=== PATIENT | female | born 1965 | race Caucasian/White ===

== ENCOUNTER 2019-01-26 17:16 | Emergency (ER) | payer OTHER, SELFPAY ==
[2019-01-26 17:17] VITALS: BP 148/89; PULSE 81; RESP 16; TEMP 36.3; O2SAT 99; BMI 22.8
--- NOTE | 2019-01-26 17:32 | RAD_ITS ---
STUDY: X-RAY - RIGHT ANKLE REASON FOR EXAM: Female, 53 years old. Pain and swelling TECHNIQUE: 3 view(s) of the ankle. COMPARISON: None. FINDINGS: There is a 2 mm linear osseous density adjacent to the lateral malleolus on the AP view. This may represent a tiny avulsion fracture. The remainder the visualized osseous structures are intact. There are no significant degenerative changes. There are no radiodense foreign bodies. There is soft tissue swelling noted at the lateral aspect. RAD/Ankle min 3 Views IMPRESSION: 2 mm linear osseous density adjacent to the lateral malleolus on the AP view. This may represent a tiny avulsion fracture. Soft tissue swelling laterally. Electronically Signed: Rm Sanchez, at 17:49 EDT Tel , Service support ,
--- NOTE | 2019-01-26 17:47 | ED.DCSUM_ITS ---
- ER Visit Summary Date of Service: 01/26/19 Chief Complaint: [Injury to right ankle] History of Present Illness: The patient is a 53 F presents to the emergency department after injuring her right ankle this morning while at work. Patient states that she stepped off of a curb and twisted the ankle. Patient initially did not think much of it but now having a hard time walking secondary to the pain. Patient noticed a lot of discoloration to the ankle. She denies any other injuries. Patient has no medical history otherwise.] Physical Examination: [HEENT-PERRLA, EOMI. Cranial nerves II through XII grossly intact. TMs clear. Mucous membranes moist. No adenopathy. Cardiovascular-regular rate and rhythm without murmur or ectopy Lungs-clear to auscultation, chest wall stable without crepitus or subcu emphysema Abdomen-normoactive bowel sounds, soft, nontender, no rebound or rigidity, no peritoneal signs. Extremities-intact ?4, normal range of motion, normal pulses. Right ankle- patient has diffuse soft tissue swelling about the lateral malleolus with ecchymosis and bruising noted. Patient has tenderness over the lateral malleolus. Patient has minimal discomfort over the base of the fifth metatarsal. She has no pain at the proximal fibular head. She is neurovascular intact distally.] Test Results: [X-rays of the right ankle obtained showed no fractures as read by myself.] Emergency Department Course and Treatment: [Will be given an air splint and crutches. She will be given a few Franklin for severe pain.] Treatment Plan: [Advised to ice and elevate extremity. Patient to follow-up with corporate care in 5 to 7 days for repeat exam. Patient will be given work restrictions.] Disposition: [Discharged home in stable condition.] Impression: [Right ankle sprain] This note was generated with [employer] dictation software. It may contain incorrect words, spelling, and punctuation that were not noted in review of the chart prior to signing ED Disposition - Plan for ED Patient: Referrals: Care Physician,No Primary [Primary Care Provider] -
--- NOTE | 2019-01-26 17:50 | ED.DEP ---
ED Disposition - Plan for ED Patient: Instructions: Sprain, Ankle, with X-Ray Prescriptions: Hydrocodone Bitart/Apap 5-325 [Hawkins 5MG-325MG] 1 tab PO Q4H PRN PRN 2 Days #10 tab PRN Reason: Pain Prescription Printed Referrals: Care Physician,No Primary [Primary Care Provider] - [facility]Care [GROUP OF PHYSICIANS] - 5-7 Days
== END 2019-01-26 18:37 | disposition home or self-care (01) ==
LOC: ED 17:45
PROVIDERS: Emergency Provider Emergency Medicine
DX: S93.401A Sprain of unspecified ligament of right ankle, initial encounter (principal); X50.1XXA Overexertion from prolonged static or awkward postures, initial encounter; W10.1XXA Fall (on)(from) sidewalk curb, initial encounter; Y93.9 Activity, unspecified; Y92.9 Unspecified place or not applicable; Y99.0 Civilian activity done for income or pay
CPT/HCPCS: 73610; 99284

== ENCOUNTER → 2019-02-20 07:13 | Outpatient (CLI) | payer OTHER, SELFPAY ==
[2019-02-07 06:27] VITALS: BMI 22.8
[2019-02-14 06:53] VITALS: BMI 30.4
--- NOTE | 2019-02-20 07:15 | MRI_ITS ---
STUDY: MRI RIGHT ANKLE WITHOUT CONTRAST REASON FOR EXAM: Right ankle pain, mostly lateral, injury 4 weeks ago. TECHNIQUE: Standardized fat and water weighted pulse sequences were obtained in all 3 orthogonal planes. COMPARISON: Radiographs 01/26/2019. FINDINGS: There is a hematoma in the subcutis adipose space anterior to the distal fibula (T1 sagittal images 4-6) measuring 2.5 cm in length. There is edema in the subcutis adipose space, greatest at the lateral aspect. There is a very small volume of fluid in the distal posterior tibialis tendon sheath and a small longitudinal split of the distal posterior tibialis tendon (T2 axial images 18, 19). There is a partially fused type II accessory navicular (T1 sagittal images 17, 18). Normal flexor digitorum longus tendon. Normal flexor hallucis longus tendon. There is a very small volume of fluid in the distal peroneal tendon sheath (inversion recovery sagittal image 5). The peroneus longus and brevis tendons are morphologically normal. There is a very small volume of fluid in the proximal tibialis anterior tendon sheath (inversion recovery series 8 images 5, 6). The tibialis anterior tendon is morphologically normal. Normal extensor hallucis longus tendon. Normal extensor digitorum longus tendons. Normal Achilles tendon and teno-osseous insertion. Normal plantar fascia. There is a plantar calcaneal enthesophyte. Normal intrinsic muscles of the rearfoot. Normal distal tibiofibular syndesmotic ligamentous complex. There is a partial tear of the anterior talofibular ligament (T2 axial image 17). Normal calcaneofibular and posterior talofibular ligaments. Normal subtalar ligaments and sinus tarsi. There is a mild sprain of the deltoid ligament (T2 coronal image 14). Normal plantar calcaneonavicular (spring) ligament. There is a small tibiotalar joint effusion (inversion recovery sagittal image 13). There is a bone contusion of the posterior lateral aspect of the talar dome (T2 coronal image 12). Normal subtalar articulations. Normal talonavicular articulation. Normal calcaneocuboid articulation. Normal navicular-cuneiform articulations. There is mild bone edema of the lateral malleolus and lateral process of the talus (T2 coronal images 12-14). There is a small bone contusion of the medial body of the talus (T2 coronal images 16, 17) MRI/Lower Ext Joint Only (Routine) IMPRESSION: Partial tear of the anterior talofibular ligament. Small longitudinal split and very mild tenosynovitis of the posterior tibialis tendon. Mild sprain of the deltoid ligament. Bone contusions of the talus and lateral malleolus. Very mild peroneal tenosynovitis. Very mild tibialis anterior tenosynovitis. Small tibiotalar joint effusion. Hematoma anterior to the distal fibula. Electronically Signed: Sohan Champion MD at 9:33 EDT Tel , Service support ,
== END ==
PROVIDERS: Referring Provider Physician Assistant Surgical; Visit Provider Physician Assistant Surgical
DX: S93.401A Sprain of unspecified ligament of right ankle, initial encounter (principal)
CPT/HCPCS: 73721

== ENCOUNTER 2019-04-28 17:00 | Outpatient (RCR) | payer OTHER, SELFPAY ==
[2019-02-26 10:20] VITALS: BMI 30.4
--- NOTE | 2019-03-05 17:54 | HP.PTEVAL_ITS ---
Patient's Visit Information ERNESTO WALL is a 53 year old F referred to Physical Therapy by Noel Sterling DO with a diagnosis of RIGHT ANKLE SPRAIN. 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 Disability: NO. Present symptoms: MY WHOLE FOOT HURTS BUT MY ANKLE IS THE WORST. GETTING NUMBNESS AND TINGLING IN TOES BUT RARELY. PATIENT ALSO REPORTS RIGHT CHAMBERS PAIN. DECREASED RIGHT ANKLE ROM AND STRENGTH. PATIENT REPORTS HER RIGHT ANKLE CATCHES EVERY TIME SHE STEPS AND IT LOCKS UP AND WON'T GO ANY FURHTER TO LET HER WALK NORMAL. Present since: JAN 26 2019. Pain Scale: WORST 5/10, LEAST 1/10. Currently: 06/30. Commenced as a result of: I'M NOT SURE. PATIENT REPORTS SHE THINKS SHE TWISTED HER ANKLE GOING OUT TO GET A DONATION AND HAD AN ISSUE ON THE CURB. SHE REPORTS SHE FELL AND LANDED ON HER KNEES. SHE REPORTS IT HAPPEND SO FAST SHE COULDN'T CATCH HERSELF. Symptoms at onset: STATES SHE WORKED HALF THE DAY AND IT GOT PROGRESSIVELY WORSE THE DAY WENT ON. MELANIE KNEE AND RIGHT ANKLE PAIN. Worse: HAVING FOOT DOWN, WALKING ON IT, MOVING IT WRONG, STANDING ON IT. Better: ELEVATING FOOT, WARM WATER IN THE SHOWER, ICE. Disturbed sleep: NO. Previous history/Previous treatment: PATIENT REPORTS MILD ANKLE SPRAINS IN THE PAST THAT GOT BETTER WITH SELF TREATMENT. PATIENT REPORTS A HISTORY OF HER RIGHT ANKLE CATCHING ABOUT ONCE A MONTH BUT NOT THIS BAD UP UNTIL THE TIME SHE FELL. Accidents: NO. Imaging: X-RAY AND MRI OF RIGHT FOOT AND ANKLE SHOWING A SMALL INTERIOR TEAR. PATIENT REPORTS THEY TOLD HER THEY DO NOT DO SURGERY FOR THIS. STUDY: MRI RIGHT ANKLE WITHOUT CONTRAST. REASON FOR EXAM: Right ankle pain, mostly lateral, injury 4 weeks ago. TECHNIQUE: Standardized fat and water weighted pulse sequences were. obtained in all 3 orthogonal planes. COMPARISON: Radiographs 01/26/2019. FINDINGS: There is a hematoma in the subcutis adipose space anterior to the distal. fibula (T1 sagittal images 4-6) measuring 2.5 cm in length. There is edema. in the subcutis adipose space, greatest at the lateral aspect. There is a very small volume of fluid in the distal posterior tibialis. tendon sheath and a small longitudinal split of the distal posterior. tibialis tendon (T2 axial images 18, 19). There is a partially fused type. II accessory navicular (T1 sagittal images 17, 18). Normal flexor. digitorum longus tendon. Normal flexor hallucis longus tendon. There is a. very small volume of fluid in the distal peroneal tendon sheath (inversion. recovery sagittal image 5). The peroneus longus and brevis tendons are. morphologically normal. There is a very small volume of fluid in the. proximal tibialis anterior tendon sheath (inversion recovery series 8. images 5, 6). The tibialis anterior tendon is morphologically normal. Normal extensor hallucis longus tendon. Normal extensor digitorum longus. tendons. Normal Achilles tendon and teno-osseous insertion. Normal plantar fascia. There is a plantar calcaneal enthesophyte. Normal. intrinsic muscles of the rearfoot. Normal distal tibiofibular syndesmotic ligamentous complex. There is a. partial tear of the anterior talofibular ligament (T2 axial image 17). Normal calcaneofibular and posterior talofibular ligaments. Normal. subtalar ligaments and sinus tarsi. There is a mild sprain of the deltoid. ligament (T2 coronal image 14). Normal plantar calcaneonavicular (spring). ligament. There is a small tibiotalar joint effusion (inversion recovery sagittal. image 13). There is a bone contusion of the posterior lateral aspect of. the talar dome (T2 coronal image 12). Normal subtalar articulations. Normal talonavicular articulation. Normal calcaneocuboid articulation. Normal navicular-cuneiform articulations. There is mild bone edema of the. lateral malleolus and lateral process of the talus (T2 coronal images. 12-14). There is a small bone contusion of the medial body of the talus. (T2 coronal images 16, 17). MRI/Lower Ext Joint Only (Routine). IMPRESSION: Partial tear of the anterior talofibular ligament. Small longitudinal split and very mild tenosynovitis of the poste rior. tibialis tendon. Mild sprain of the deltoid ligament. Bone contusions of the talus and lateral malleolus. Very mild peroneal tenosynovitis. Very mild tibialis anterior tenosynovitis. Small tibiotalar joint effusion. Hematoma anterior to the distal fibula. PMH: UNREMARKABLE. Recent major surgery: NO. OTHER: STATES SHE WAS TOLD TO DO ANKLE ALPHABET BUT SOMETIMES ONLY GETS IT DONE ONCE A DAY. STATES SHE HAS HAD HER BOOT ON UNTIL TODAY AND SHE IS WEANING OFF OF IT THROUGH THIS WEEK. PATIENT REPORTS SHE REALLY HAS NOT BEEN MOVING MUCH AND JUST SITTING AT WORK WITH HER FOOT UP. PATIENT REPORTS SHE HAS BEEN DRIVING HERSELF TO WORK EVERYDAY AND SHE WAS OK'D TO DRIVE HER CAR BUT NOT A WORK CAR. - Objective THIS PATIENT AMBULATES INDEP'LY INTO PT WITHOUT ANY ASSISTIVE DEVICES LIMPING ON HER RIGHT LE. SHE IS ONLY WEARING AN ANKLE SLEEVE ON HER RIGHT ANKLE. SHE HAS DECREASED HEEL STRIKE AND TOE OFF PHASES OF GAIT. NO LOB. SHE IS WEARING REGULAR TIE UP SHOES. SHE HAS RIGHT ANKLE AND CHAMBERS ECCYMOSIS. RIGHT ANKLE SWELLING MORE LATERALLY THAN MEDIALLY. CIRCUMFERENCE MEASUREMENT AT [facility] IS 20.5 CM. RIGHT HIP AND KNEE STRENGTH IS 5/5. RIGHT ANKLE AROM AND PROM IS -8 DEG DORSIFLEXION TO 30 DEG PLANTARFLEXION. INVERSION 16 DEG AND EVERSION 7 DEG. ABLE TO WIGGLE ALL OF HER TOES. HEP INSTRUCTION: PATIENT WAS INSTRUCTED IN AROM OF TOES. ANKLE PUMPS AND ANKLE ALPHABET EVERY 2 TO 3 HOURS TOLERATED. PATIENT DEMONSTRATED GOOD EX TECHNIQUE AFTER INSTRUCTIONS GIVEN. ALSO INSTRUCTED IN DAILY QS'S, HEEL SLIDES AND GLUT SETS X 10 TO 20 REPS EA. - Goals Goal 1:: DECREASE C/O RIGHT FOOT AND ANKLE PAIN Goal Time Frame: 4-6 Weeks Goal 2:: IMPROVE RIGHT FOOT AND ANKLE FUNCTIONAL ROM Goal Time Frame: 4-6 Weeks Goal 3:: IMPROVE RIGHT FOOT AND ANKLE FUNCTIONAL STRENGTH Goal Time Frame: 4-6 Weeks Goal 4:: DECREASE RIGHT FOOT AND ANKLE EDEMA Goal Time Frame: 4-6 Weeks Goal 5:: INDEP AND SAFE GAIT ON ALL SURFACES WITH LEAST DEVIATIONS. Goal Time Frame: 4-6 Weeks Goal 6:: INDEP HEP. - Rehabilitation Potential Rehabilitation Potential: Fair - Anticipated Interventions Patient/Client Instruction: Educate patient on: Condition, Plan of Care, Risk Factors, Benefits of Fitness Program For the Purpose of:: To improve self management Therapeutic Exercise to Include: Strength training, Flexibilty training, Gait and locomotor training, Passive ROM, Active ROM For the Purpose of:: To decrease pain, To increase ROM, To improve muscle performance and motor function, To increase tolerance to activity/c ondition/position, To improve ability of physical actions for home/community/work/leisure, To improve gait and locomotor functions Thank you for the opportunity to evaluate your patient. For Medicare and Medicare HMO plans, please review the plan of care and approve it. It will need to be FAXED BACK to us at [phone] for Medicare purposes. For Medicare only, by signing this I certify the plan of care. Please let me know if there are questions or concerns regarding this plan of care. Physician Signature: Date:
--- NOTE | 2019-04-09 18:04 | HP.PTREVAL ---
Noel Sterling, DO, It has been my pleasure to treat ERNESTO WALL over the last 11 visits for RIGHT ANKLE SPRAIN. Please see the progress note below for an update on the physical therapy plan of care! Subjective: PATIENT REPORTS SHE HAS MORE MOBILITY IN HER ANKLE AND LESS PAIN COMPARED TO BEFORE STARTING PT. STATES SHE CAN STAND AND WALK BETTER TOO. STILL HAVING TROUBLE WITH HER ANKLE LOCKING UP BUT NOT OFTEN OR SEVERE BEFORE PT. HAPPENS RANDOMLY. I CAN'T GO DOWN STAIRS RIGHT OR WALK WELL ON UNEVEN SURFACES. THE SENSATION IN THE BOTTOM OF MY FOOT IS BETTER. 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 I PRETTY MUCH DO EVERYTHING BUT I WOULDN'T HAVE TO. FOLLOW UP WITH DR. REES PENDING Apr. PATIENT REPORTS SHE STILL GETS NUMBESS FROM HER MID CHAMBERS DOWN BUT IT HAS IMPROVED WITH EX. Objective/Function: PATIENT IS DOING MUCH BETTER. SHE IS WALKING GOOD TODAY. DEMO'S INDEP TOE AND HEEL WALKING AND IS INDEP WITH A HEP. ROM HAS IMPROVED FOLLOW: DORSIFLEX +8 DEG, PLANTARFLEXION 43 DEG, IV 40 DEG AND EV 16 DEG. PATIENT DENIES INCREASED PAIN WITH TESTING TODAY. MILD RIGHT ANKLE EDEMA. PATIENT IS A GOOD CANDIDATE TO CONTINUE PT AND SHE IS AGREEABLE. Plan Plan: CONT PT PER ORIG POC WORKING TOWARD SAME GOALS. Goals Goal 1:: DECREASE C/O RIGHT FOOT AND ANKLE PAIN Goal Time Frame: 4-6 Weeks Goal Progress: Progressing Goal 2:: IMPROVE RIGHT FOOT AND ANKLE FUNCTIONAL ROM Goal Time Frame: 4-6 Weeks Goal Progress: Progressing Goal 3:: IMPROVE RIGHT FOOT AND ANKLE FUNCTIONAL STRENGTH Goal Time Frame: 4-6 Weeks Goal Progress: Progressing Goal 4:: DECREASE RIGHT FOOT AND ANKLE EDEMA Goal Time Frame: 4-6 Weeks Goal Progress: Progressing Goal 5:: INDEP AND SAFE GAIT ON ALL SURFACES WITH LEAST DEVIATIONS. Goal Time Frame: 4-6 Weeks Goal Progress: Progressing Goal 6:: INDEP HEP. Anticipated Interventions Patient/Client Instruction: Educate patient on: Condition, Plan of Care, Risk Factors, Benefits of Fitness Program For the Purpose of:: To improve self management Therapeutic Exercise to Include: Strength training, Flexibilty training, Gait and locomotor training, Passive ROM, Active ROM For the Purpose of:: To decrease pain, To increase ROM, To improve muscle performance and motor function, To increase tolerance to activity/condition/position, To improve ability of physical actions for home/community/work/leisure, To improve gait and locomotor functions Please do not hesitate to contact me at [phone] by phone or if you have questions or concerns regarding this new plan of care! Sincerely, Viktoria Nair, PT, Cert MDT
--- NOTE | 2019-04-28 17:29 | HP.PTREVAL ---
Noel Sterling, DO, It has been my pleasure to treat ERNESTO WALL over the last 18 visits for RIGHT ANKLE SPRAIN. Please see the progress note below for an update on the physical therapy plan of care! Subjective: PATIENT REPORTS DECREASED PAIN SINCE LAST VISIT. JUST CAME FROM WORKING 8 HOURS. PATIENT REPORTS THAT SHE IS OK OTHER THAN TRYING TO GET UP FROM THE FLOOR. KNEELING ALL THE WAY DOWN AND STEPS. Objective/Function: PATIENT IS MAKING GOOD PROGRESS TOWARD ALL GOALS BUT STILL HAS DECREASED RIGHT ANKLE STRENGTH AND STABILITY AND SOME TIGHTNESS. DORSIFLEX +9 DEG, PLANTARFLEXION 45 DEG, IV 40 DEG AND EV 15 DEG. Plan Plan: HOLD CHART PENDING PHYSICIAN RE-CHECK Goals Goal 1:: DECREASE C/O RIGHT FOOT AND ANKLE PAIN Goal Time Frame: 4-6 Weeks Goal Progress: Progressing Goal 2:: IMPROVE RIGHT FOOT AND ANKLE FUNCTIONAL ROM Goal Time Frame: 4-6 Weeks Goal Progress: Progressing Goal 3:: IMPROVE RIGHT FOOT AND ANKLE FUNCTIONAL STRENGTH Goal Time Frame: 4-6 Weeks Goal Progress: Progressing Goal 4:: DECREASE RIGHT FOOT AND ANKLE EDEMA Goal Time Frame: 4-6 Weeks Goal Progress: Progressing Goal 5:: INDEP AND SAFE GAIT ON ALL SURFACES WITH LEAST DEVIATIONS. Goal Time Frame: 4-6 Weeks Goal Progress: Progressing Goal 6:: INDEP HEP. Anticipated Interventions Patient/Client Instruction: Educate patient on: Condition, Plan of Care, Risk Factors, Benefits of Fitness Program For the Purpose of:: To improve self management Therapeutic Exercise to Include: Strength training, Flexibilty training, Gait and locomotor training, Passive ROM, Active ROM For the Purpose of:: To decrease pain, To increase ROM, To improve muscle performance and motor function, To increase tolerance to activity/condition/position, To improve ability of physical actions for home/community/work/leisure, To improve gait and locomotor functions Please do not hesitate to contact me at [phone] by phone or if you have questions or concerns regarding this new plan of care! Sincerely, Viktoria Nair, PT, Cert MDT
--- NOTE | 2019-06-04 17:44 | HP.PTDCNRP_ITS ---
HP - Discharge Summary (1) - Patient Information ERNESTO WALL was seen in my office for initial evaluation on 03/05/19. The following Plan of Care was established for this patient: Initial Frequency: 2-3x /Week Initial Duration: 4-6 Weeks - Anticipated Interventions Patient/Client Instruction: Educate patient on: Condition, Plan of Care, Risk Factors, Benefits of Fitness Program For the Purpose of:: To improve self management Therapeutic Exercise to Include: Strength training, Flexibilty training, Gait and locomotor training, Passive ROM, Active ROM For the Purpose of:: To decrease pain, To increase ROM, To improve muscle performance and motor function, To increase tolerance to activity/condition/position, To improve ability of physical actions for home/com munity/work/leisure, To improve gait and locomotor functions This patient was last seen in our office 04/28/19. Pertinent comments regarding their Physical therapy will appear below: This patient has not returned to Physical Therapy and is appropriate to return to MD for further follow-up as needed. At this point I will be discontinuing this patient from physical therapy. I would be happy to see this patient again in the future if found appropriate by the physician. Thank you! Viktoria Nair, PT, Cert MDT
== END 2019-04-28 19:00 | disposition home or self-care (01) ==
LOC: PT 17:00
PROVIDERS: Referring Provider Orthopaedic Surgery; Visit Provider Orthopaedic Surgery
DX: S93.401D Sprain of unspecified ligament of right ankle, subsequent encounter (principal)
CPT/HCPCS: 97110; 97140; 97161; 97530